=== PATIENT | female | born 1940 | race Caucasian/White ===

== ENCOUNTER → 2016-12-16 | Outpatient (CLI) | payer MEDICARE ==
[2016-12-16 17:59] LABS: Blood Urea Nitrogen 12 mg/dL (7-17); Non-African American GFR(MDRD) >60 (>60 ml/min/1.73 sqM)
--- NOTE | 2016-12-16 19:39 | CT ---
EXAMINATION TYPE: CT abdomen pelvis w con DATE OF EXAM: 12/16/2016 COMPARISON: NONE HISTORY: Bilateral lower quadrant and umbilical pain on and off for 1-[address] DLP: 973 mGycm Automated exposure control for dose reduction was used. TECHNIQUE: Helical acquisition of images was performed from the lung bases through the pelvis. CONTRAST: Performed with Oral Contrast and with IV Contrast, patient injected with 100 mL of Omnipaque 300. FINDINGS: Lung bases are clear. There is no pericardial effusion. There is no pleural effusion. Liver spleen pancreas gallbladder appear normal. Bile ducts are not dilated. There is no adrenal mass . Kidneys show satisfactory contrast opacification. There is no hydronephrosis. Abdominal aorta is at heromatous. There is no retroperitoneal adenopathy. There is no ascites. Bladder distends smoothly. T here is no sign of a pelvic mass. There is descent of the floor of the urinary bladder. There are a f ew sigmoid diverticula. There is no sign of diverticulitis. There are clips apparently from appendect ramy. I see no intestinal wall thickening. There is no sign of a bowel obstruction. IMPRESSION: THERE IS MILD SIGMOID DIVERTICULOSIS WITHOUT DIVERTICULITIS. THERE IS SOME DESCENT OF THE FLOOR OF THE URINARY BLADDER RELATED TO CYSTOCELE. DESCENT IS MORE THAN 3 CM.
== END | disposition home or self-care (01) ==
LOC: RADCTMAIN 16:22
PROVIDERS: ATTEND Family Medicine
DX: K57.30 Diverticulosis of large intestine without perforation or abscess without bleeding (principal); N81.10 Cystocele, unspecified; K59.00 Constipation, unspecified
CPT/HCPCS: 82565; 84520; 74177; 36415; Q9967

== ENCOUNTER 2017-02-27 11:16 | Observation (INO) | payer MEDICARE ==
[2017-02-27] MEDS ORDERED: HEPARIN SODIUM,PORCINE 5,000 UNIT/ML 1 ML VIAL IV ONE (13:32)
[2017-02-27] MEDS ORDERED: HEPARIN SODIUM,PORCINE 5,000 UNIT/ML 1 ML VIAL IV PRN (13:32)
[2017-02-27] MEDS ORDERED: HEPARIN SODIUM,PORCINE/D5W PMX 25,000 UNIT in DEXTROSE/WATER 1 500ML.BAG IV SCH (13:45)
[2017-02-27 14:26] LABS: Basophils # (A) 0.1 k/uL (0-0.2); Basophils % (A) 1 %; CH 32.5; CHCM 34.1; Eosinophils # (A) 0.1 k/uL (0-0.7); Eosinophils % (A) 1 %; HCT 39.6 % (34.0-46.0); HDW 2.21; Luc # (Auto) 0.13; Luc % (Auto) 2; Lymphocytes # (A) 1.7 k/uL (1.0-4.8); Lymphocytes % (A) 21 %; MCH 31.3 pg (25.0-35.0); MCHC 32.8 g/dL (31.0-37.0); MCV 95.6 fL (80.0-100.0); Mean Platelet Volume 7.7; Monocytes # (A) 0.5 k/uL (0-1.0); Monocytes % (A) 6 %; Neutrophils # (A) 5.7 k/uL (1.3-7.7); Neutrophils % (A) 70 %; RBC 4.14 m/uL (3.80-5.40); RDW 13.4 % (11.5-15.5); WBC 8.1 k/uL (3.8-10.6); WBC (Perox) 8.48
[2017-02-27 14:32] LABS: INR 1.1 (<1.2); Partial Thromboplastin Time 23.5 sec (22.0-30.0); Prothrombin Time 10.9 sec (9.0-12.0)
[2017-02-27 14:42] LABS: ALT 28 U/L (9-52); AST 39 U/L (14-36); Alkaline Phosphatase 62 U/L (38-126); Anion Gap 11 mmol/L; Blood Urea Nitrogen 10 mg/dL (7-17); Calcium 9.7 mg/dL (8.4-10.2); Carbon Dioxide 24 mmol/L (22-30); Chloride 104 mmol/L (98-107); Glucose 117 mg/dL (74-99); Non-African American GFR(MDRD) >60 (>60 ml/min/1.73 sqM); Potassium 4.4 mmol/L (3.5-5.1); Sodium 139 mmol/L (137-145); Total Bilirubin 0.6 mg/dL (0.2-1.3); Total Protein 6.8 g/dL (6.3-8.2)
[2017-02-27] MEDS: HYDROCORTISONE SUPPOSITORY 25 MG SUPP RECTAL SCH (16:33)
[2017-02-27] MEDS: CEPHALEXIN 500 MG CAP PO SCH ×2 (16:34→21:26)
[2017-02-27] MEDS ORDERED: PSYLLIUM HUSK 100% 6 GM PACKET PO SCH (21:00)
[2017-02-27] MEDS ORDERED: ATORVASTATIN 40 MG TAB PO SCH (21:00)
[2017-02-27] MEDS ORDERED: EZETIMIBE 10 MG TAB PO SCH (21:00)
[2017-02-27] MEDS ORDERED: LATANOPROST 0.005% OPHTH DROPS 2.5 ML BTL BOTH EYES SCH (21:00)
[2017-02-27] MEDS ORDERED: ASPIRIN 325 MG TAB PO SCH (21:00)
[2017-02-28] MEDS ORDERED: PANTOPRAZOLE 40 MG TABLET PO SCH (07:30)
[2017-02-28] MEDS ORDERED: LOSARTAN 50 MG TAB PO SCH (09:00)
[2017-02-28] MEDS ORDERED: B COMPLEX-VIT C-VIT E-ZINC 1 EACH TAB PO SCH (09:00)
[2017-02-28] MEDS ORDERED: ISOSORBIDE MONONITRATE ER 30 MG TAB.ER.24H PO SCH (09:00)
[2017-02-28] MEDS: CEPHALEXIN 500 MG CAP PO SCH (09:27)
--- NOTE | 2017-02-28 09:56 | HP ---
CHIEF COMPLAINT: Neck tightness and right anterior chest pain. This is a 76-year-old white female admitted with neck pain and right chest pain that had been going on for about a 48-hour period of time. She took some aspirin for symptom relief. Unfortunately it felt somewhat similar to what she has had previously before she had her bypass surgery multiple years ago. She has past medical history of ischemic heart disease and she had CABG done multiple vessels 2000 and stress test just done here on 05/06/16 with MPI was within normal limits. She has longstanding history of hyperlipidemia, coronary artery disease, and hypertension. Her ALLERGIES are to PENICILLIN. Medications are that of Losartan 50, Protonix 40, p.r.n. sublingual nitroglycerin, multivitamin, 30 of Imdur daily, vitamin B complex, simvastatin 80 and Zetia 10, Metamucil powder, aspirin 325. Surgical history is basically the coronary artery bypass. Family history showed a brother with coronary artery disease and father with coronary artery disease. REVIEW OF SYSTEMS: CARDIOPULMONARY: No shortness of breath. Nonspecific, dull to sharp, right chest pain and neck pain with tightness. No cough, no paroxysmal nocturnal dyspnea. No orthopnea. No true diaphoresis. GI: No hematemesis, melena, or hematochezia. : Within normal limits here with her. NEUROMUSCULAR: Normal. SKIN: She has no swelling in her legs now that she has had support hose, but she has some minimal lower feet swelling. PSYCHIATRIC: Normal. She is not depressed. PHYSICAL EXAMINATION: Blood pressure is 118/70, heart rate 70s and respiratory rate 16, temperature 98. EYES: Pupils are equal, round and reactive to light and accommodation. ENT: Showed tympanic membranes and pharynx to be negative NECK: Supple with midline trachea. CHEST: Essentially clear to auscultation with incisional scars of bypass. HEART: Sinus rhythm with no murmur. ABDOMEN: Soft, nontender with no organomegaly. She has good palpable pulses bilaterally in upper and lower extremities. NEUROMUSCULAR: She has arthritis in hands with decreased range of motion of her shoulders with minimal to no swelling in her lower extremities. She has good palpable lower extremity pulses. ASSESSMENT: 1. Acute coronary artery syndrome with history of CABG x3 vessels. 2. History of hyperlipidemia. 3. Gastroesophageal reflux. 4. Hypertension. 5. Borderline glaucoma. PLAN: Placed her in the hospital, started her on heparin. I am going to get some troponins. Will follow accordingly. Cardiology consultation with the possibility of stress test via cardiac cath in the morning. PANCHITO
--- NOTE | 2017-02-28 10:16 | ECHOF ---
Referral Reason:chest pain MEASUREMENTS -------- HEIGHT: 147.3 cm WEIGHT: 56.2 kg BP: 134/79 RVIDd: 2.9 cm (< 3.3) IVSd: 1.1 cm (0.6 - 1.1) LVIDd: 4.3 cm (3.9 - 5.3) LVPWd: 1.0 cm (0.6 - 1.1) IVSs: 1.3 cm LVIDs: 3.2 cm LVPWs: 1.5 cm LA Diam: 3.5 cm (2.7 - 3.8) LAESV Index (A-L): 23.50 ml/m Ao Diam: 3.0 cm (2.0 - 3.7) AV Cusp: 2.0 cm (1.5 - 2.6) MV EXCURSION: 10.933 mm (> 18.000) MV EF SLOPE: 14 mm/s (70 - 150) EPSS: 1.1 cm MV E Jose: 0.81 m/s MV DecT: 233 ms MV A Jose: 1.10 m/s MV E/A Ratio: 0.74 RAP: 5.00 mmHg RVSP: 24.79 mmHg FINDINGS -------- Sinus rhythm. This was a technically difficult study with suboptimal apical views. The left ventricular size is normal. Left ventricular wall thickness is normal. Overall left ventricular systolic function is normal with, an EF between 55 - 60 %. Septal wall motion is delayed and consistent with prior cardiac surgery. The right ventricle is normal in size. The left atrial size is normal. The right atrium is normal in size. 1.5mg of Definity was utilized for enhancement of images There is mild aortic valve sclerosis. The mitral valve leaflets are mildly thickened. Mild mitral annular calcification present. Mild tricuspid regurgitation present. Right ventricular systolic pressure is normal at < 35 mmHg. Trace/mild (physiologic) pulmonic regurgitation. The aortic root size is normal. Normal inferior vena cava with normal inspiratory collapse consistent with estimated right atrial pressure of 5 mmHg. There is no pericardial effusion. CONCLUSIONS -------- 1. Sinus rhythm. 2. There is mild aortic valve sclerosis. 3. The mitral valve leaflets are mildly thickened. 4. Mild mitral annular calcification present. 5. Mild tricuspid regurgitation present. 6. Right ventricular systolic pressure is normal at < 35 mmHg. 7. Trace/mild (physiologic) pulmonic regurgitation. 8. The aortic root size is normal. 9. Normal inferior vena cava with normal inspiratory collapse consistent with estimated right atrial pressure of 5 mmHg. 10. There is no pericardial effusion. 11. This was a technically difficult study with suboptimal apical views. 12. The left ventricular size is normal. 13. Left ventricular wall thickness is normal. 14. Septal wall motion is delayed and consistent with prior cardiac surgery. 15. The right ventricle is normal in size. 16. The left atrial size is normal. 17. The right atrium is normal in size. 18. 1.5mg of Definity was utilized for enhancement of images FEATHEREDGE MACHINE OPERATOR: Lanny Nunez RDCS
[2017-02-28] MEDS ORDERED: MULTIVITAMINS, THERA 1 EACH TAB PO SCH (12:00)
[2017-02-28 12:10] VITALS: BP 115/62; PULSE 83; RESP 18; TEMP 97.5
[2017-02-28] MEDS: HYDROCORTISONE SUPPOSITORY 25 MG SUPP RECTAL SCH (12:22)
--- NOTE | 2017-02-28 12:57 | ECHOS ---
DATE OF SERVICE: 02/28/2017 TYPE OF REPORT: Stress Echocardiogram INDICATION: Chest pain. BASELINE HEART RATE: 82 BASELINE BLOOD PRESSURE: 156/96 MAXIMUM HEART RATE: 140 MAXIMUM BLOOD PRESSURE: 149/88 85% MPHR: 124 100% MPHR: 146 METS: 9.6 MAX STAGE REACHED: II TOTAL EXERCISE TIME: 5 minutes Baseline EKG revealed a normal sinus rhythm with minor nonspecific ST-T changes. Patient walked on standard [facility] protocol for 5 minutes. Achieved a maximum heart rate of 140 beats per minute, which is more than 85% of predicted maximal. There was lots of baseline artifact. There was no evidence of any significant ST segment changes to indicate ischemia. Patient did not have any angina. By EKG criteria, this is a negative stress test with limited exercise capacity without angina, arrhythmia or EKG changes to indicate ischemia. Baseline echo images revealed a normal wall motion and wall thickening with atypical septal motion. At peak exercise, there was good augmentation of left ventricular wall motion and wall thickening of all segments, however, the quality of images was slightly suboptimal, but there is no evidence to suggest any ischemia on this stress echocardiogram. Atypical septal motion persisted. FINAL IMPRESSION: 1. By EKG criteria, this is a negative stress test with limited exercise capacity. 2. Although echo images were somewhat limited, there is no clear cut evidence to suggest ischemia on this stress echocardiogram. PANCHITO
--- NOTE | 2017-02-28 13:50 | P.CRDCN ---
History of Present Illness Consult date: 02/28/17 History of present illness: This is a 76-year-old female. Past medical history significant for CAD with CABG TRAN-LAD, graft to RCA and graft to ramus. She also has hypertension and hyperlipidemia. Patient presents with complaints of right chest wall pain she states she first felt this pain described as a poke on Friday afternoon after taking a long walk. She took an aspirin and the sensation seemed to subside. Then again on Friday she had a similar pain and this time she also felt a tightness and pressure in her neck and jaw. She states this presentation is consistent with how she felt when she had an MN in the past. She is a patient of Dr. Deleon. Her last stress test was Apr 2016 and was normal. Patient is a direct admit from Dr. Maldonado's office. EKG done shows normal sinus mechanism with conduction delay and left ventricular hypertrophy, old septal infarct apparent with no new T-wave abnormality. When compared with old EKG this appears consistent. Troponins are negative x3, potassium is 4.4, Hgb 13.0. Review of Systems REVIEW OF SYSTEMS: Patient denies any chest discomfort. No shortness of breath. No diaphoresis. Denies headache, dizziness, blurred vision, double vision. No dyspnea on exertion. Patient denies any stomach discomfort. No nausea, vomiting. No hematochezia. No hematemesis. Denies any black stools or blood in his stools. No syncope. No palpitations. No cough. No recent fever or chills. No muscle weakness or numbness. 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 Past Anesthesia/Blood Transfusion Reactions: Motion Sickness, Postoperative Nausea & Vomiting (PONV) Smoking Status: Never smoker - Past Family History Father Family Medical History: Myocardial Infarction (MN) Additional Family Medical History / Comment(s): Father of a MN at the age of 48yrs. Mother Additional Family Medical History / Comment(s): Mother had diverticular disease. She at the age of 94yrs. Brother(s) Family Medical History: Cancer, Myocardial Infarction (MN) Additional Family Medical History / Comment(s): Brother had a MN at the age of 69yrs. He had pancreatic cancer. Medications and Allergies Home Medications Medication Instructions Recorded Confirmed Type Aspirin EC [Ecotrin] 325 mg PO HS 02/27/17 02/27/17 History Bimatoprost [Lumigan .01% Ophth 1 drop BOTH EYES HS 02/27/17 02/27/17 History Soln] Ezetimibe [Zetia] 10 mg PO HS 02/27/17 02/27/17 History Isosorbide Mononitrate ER [Imdur] 30 mg PO DAILY 02/27/17 02/27/17 History Losartan [Cozaar] 50 mg PO DAILY 02/27/17 02/27/17 History Multivitamins, Thera [Multivitamin 1 tab PO DAILY 02/27/17 02/27/17 History (formulary)] Pantoprazole Sodium [Protonix] 40 mg PO DAILY 02/27/17 02/27/17 History Psyllium Husk 100% [Metamucil 6 gm PO HS 02/27/17 02/27/17 History Packet] Simvastatin 80 mg PO HS 02/27/17 02/27/17 History Vitamin B Complex 1 cap PO DAILY 02/27/17 02/27/17 History sulfaSALAzine [Azulfidine] 500 mg PO DAILY 02/27/17 02/27/17 History Allergies Allergy/AdvReac Type Severity Reaction Status Date / Time Penicillins Allergy Severe Anaphylaxis Verified 02/27/17 11:49 fexofenadine AdvReac extreme Verified 02/27/17 11:49 [From Liliana-D 12 Hour] depression prochlorperazine AdvReac Hallucinati Verified 02/27/17 11:49 [From Compazine] ons pseudoephedrine AdvReac extreme Verified 02/27/17 11:49 [From Lilinaa-D 12 Hour] depression Physical Exam Vitals: Vital Signs Temp Pulse Resp BP Pulse Ox 02/27/17 12:00 72 16 02/27/17 11:30 97.5 F L 72 16 134/79 98 Intake and Output 02/26/17 02/27/17 02/27/17 22:59 06:59 14:59 Intake Total 240 Balance 240 Intake: Oral 240 Other: Voiding Method Toilet Weight 56.4 kg Patient Weight 02/28/17 06:59 Weight 56.4 kg GENERAL: This is a 76-year-old female in no apparent distress at the time of my examination. HEENT: Head is atraumatic, normocephalic. Pupils are equal, round. Sclerae anicteric. Conjunctivae are clear. Mucous membranes of the mouth are moist. Neck is supple. There is no jugular venous distention. No carotid bruit is heard. LUNGS: Clear to auscultation no wheezes, rales or rhonchi. No chest wall tenderness is noted on palpation or with deep breathing. HEART: Regular rate and rhythm without murmurs, rubs or gallops. S1 and S2 heard. ABDOMEN: Soft, nontender. Bowel sounds are heard. No organomegaly noted. EXTREMITIES: 2+ peripheral pulses with no evidence of peripheral edema and no calf tenderness noted. NEUROLOGIC: Patient is awake, alert and oriented x3. Results 02/27/17 14:08 02/27/17 14:08 Current Medications Generic Name Dose Route Start Last Admin Trade Name Freq PRN Reason Stop Dose Admin Aspirin 325 mg 02/27/17 21:00 Aspirin PO HS [facility] Atorvastatin Calcium 40 mg 02/27/17 21:00 Lipitor PO HS [facility] Cephalexin 500 mg 02/27/17 16:00 Keflex PO TID MAZIN Ezetimibe 10 mg 02/27/17 21:00 Zetia PO HS [facility] Heparin Sodium (Porcine) 0 unit 02/27/17 13:32 Heparin IV PER PROTOCOL PRN Low PTT Protocol Hydrocortisone Acetate 25 mg 02/27/17 14:00 Anusol-Hc RECTAL DAILY MAZIN Heparin Sodium/Dextrose 25,000 500 mls @ 13.53 mls/hr 02/27/17 13:45 unit/ IV Solution IV .Q24H MAZIN Protocol 12 UNITS/KG/HR Isosorbide Mononitrate 30 mg 02/28/17 09:00 Imdur PO DAILY [facility] Latanoprost 1 drops 02/27/17 21:00 Xalatan 0.005% BOTH EYES HS MAZIN Losartan Potassium 50 mg 02/28/17 09:00 Cozaar PO DAILY [facility] Multivitamins 1 each 02/28/17 12:00 Theragran PO DAILY@1200 [facility] Pantoprazole Sodium 40 mg 02/28/17 07:30 Protonix PO AC-BRKFST MAZIN Psyllium Hydrophilic Mucilloid 6 gm 02/27/17 21:00 Metamucil PO HS [facility] Vitamin B Complex/Vit C/Vit E/Zinc 1 each 02/28/17 09:00 Z-Bec PO DAILY [facility] Intake and Output 02/26/17 02/27/17 02/27/17 22:59 06:59 14:59 Intake Total 240 Balance 240 Intake: Oral 240 Other: Voiding Method Toilet Weight 56.4 kg Patient Weight 02/28/17 06:59 Weight 56.4 kg Assessment and Plan Plan: ASSESSMENT 1. Chest pain, atypical 2. Coronary artery disease with CABG 3 vessels 3. History of hyperlipidemia 4. History of hypertension PLAN We will proceed with an echocardiogram and a exercise stress echo. If these tests come back negative the patient is stable for discharge home. She should follow-up with Dr. Deleon in one to 2 weeks. She has been advised to continue all current medications as previously ordered. Nurse Practitioner note has been reviewed, I agree with a documented findings and plan of care. Patient was seen and examined.
--- NOTE | 2017-02-28 15:26 | PN ---
Patient admitted with bilateral neck pain going into the lower jaw, quite severe even through transient over a two day period of time. Her EKG in my office shows no change. She has negative stress test. She has had previous CABG on 2000, which she presented, while I was in the hospital making rounds, to the emergency room with bilateral neck pain. At that time she had negative troponin initially but we placed her in the hospital accordingly. Then we watched some ST occur. She was taken up to the [facility] and positive multiple vessel blockage and had bypass surgery that day. This presentation of symptomatology is very similar. Not really shortness of breath. She also had a little bit of left chest pain and is kind of a stabbing pain, which seems to be incidental from the right rib four area through to the back, but is upper. Over the night she has been very comfortable. She has been heparinized. She also had a thorn situation or abrasion on her left arm which was minimally inflamed so we started her on Keflex for that too. At this point her review of systems: CARDIOPULMONARY: No shortness of breath. Her chest pain is minimal and on the right side more of a stabbing type sensation, but more significant is her left leg pressure type of spasm bilaterally. No hemoptysis. No cough. No fever, no chills. No paroxysmal nocturnal dyspnea. One pillow orthopnea. GI: No hematemesis, melena, hematochezia. : Negative. INTEGUMENTARY: Negative. ENDOCRINE: Negative. Vital signs today: She is alert, well oriented to person, place and thing. Her blood pressure is 114/64, heart rate is in the 60s, temperature is 98 and respiratory rate is 18. EYES: Pupils equal, round and reactive to light and accommodations. ENT: Shows tympanic membranes and pharynx to be negative NECK: Supple with midline trachea. CHEST: Essentially clear to auscultation. HEART: Sinus rhythm. ABDOMEN: Soft, nontender with no organomegaly. EXTREMITIES: Negative. LABS: Her troponins are negative. Her hemoglobin was 13, creatinine normal at 0.73 with BUN of 10 and sodium of 4.2. Three troponins over 6 hours are negative. ASSESSMENT: 1. Chest pain, nonspecific but no angina in nature. 2. History of hypertension. 3. Hyperlipidemia. 4. Small abrasion on the left arm. PLAN: At this period of time, I just talked with ( ) our nurse practitioner , still awaiting for cardiac evaluation for her to be stressed or cathed today at their discretion. PANCHITO
--- NOTE | 2017-03-17 14:37 | DS ---
DISCHARGE SUMMARY DATE OF ADMISSION: 02/27/2017 DATE OF DISCHARGE: 02/28/2017 DISCHARGE DIAGNOSES: 1. 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 2. History of acute coronary artery disease with CABG x3. 3. History of hyperlipidemia. 4. GE reflux. 5. Hypertension. 6. Borderline glaucoma. This was a 76-year-old, white female admitted with neck pain and chest pain that had been going on for about 48 hours. She took aspirin for symptomatic relief, unfortunately it did not seem to occur and she had similar symptoms with actually neck to chin pain as I remember [place] of 2000. At that time she was found to be in extreme multiple vessel stenosis of the coronary arteries which resulted in bypass surgery. The patient continued to feel this way. So she was admitted. Echocardiogram was completed after evaluation with Dr. Crystal Edward and her echo showed an ejection fraction between 55 and 60%. She had some septal wall delay which was consistent with previous cardiac surgery. Her left ventricular systolic pressure was less than 35. She had mild pulmonic regurgitation. So they proceeded to do a stress test on her and she ended up with a normal stress test with minor ST depression. She walked on a standard [facility] protocol for 5 minutes and achieved a heart rate of 140. The stress echo part of it showed nothing but the atypical septal motion. With that said, she was discharged home. She was stay on Azulfidine 500 mg which she was taking for her enteritis, vitamin D daily. She is on Metamucil. She takes 6 g at bedtime. Multiple vitamin, Zetia 10, aspirin 325, 50 of Zocor, 30 of Imdur, 80 of simvastatin, Protonix 40 daily and her Lumigan ophthalmic drops 1 drop both eyes daily. She will follow up with Dr. Deleon on outpatient basis and see me in a week. She is on a low fat, low salt diet and is comfortable on discharge. MMODL / IJN: [id number] /
== END 2017-02-28 13:39 | disposition home or self-care (01) ==
LOC: 3OBS 11:16
PROVIDERS: ADMIT Family Medicine; ATTEND Family Medicine
DX: R07.89 Other chest pain (principal); I25.10 Atherosclerotic heart disease of native coronary artery without angina pectoris; E78.5 Hyperlipidemia, unspecified; I10 Essential (primary) hypertension; K21.9 Gastro-esophageal reflux disease without esophagitis; M19.90 Unspecified osteoarthritis, unspecified site; M54.2 Cervicalgia; H40.9 Unspecified glaucoma; I25.2 Old myocardial infarction; K57.90 Diverticulosis of intestine, part unspecified, without perforation or abscess without bleeding; Z82.49 Family history of ischemic heart disease and other diseases of the circulatory system; Z95.1 Presence of aortocoronary bypass graft; Z79.899 Other long term (current) drug therapy; Z79.82 Long term (current) use of aspirin; Z88.0 Allergy status to penicillin; Z88.8 Allergy status to other drugs, medicaments and biological substances; M13.849 Other specified arthritis, unspecified hand; R68.84 Jaw pain; S40.812A Abrasion of left upper arm, initial encounter; W26.8XXA Contact with other sharp object(s), not elsewhere classified, initial encounter; I37.1 Nonrheumatic pulmonary valve insufficiency
CPT/HCPCS: 96365; 96366 ×2; 96376; 93017; 93350; 80053; 84484 ×2; 85025; 85610; 85730 ×2; G0378 ×2; G0379; C8929; J1644 ×2; Q9957; 93005; 93306

== ENCOUNTER → 2018-03-04 | Outpatient (CLI) | payer MEDICARE ==
[2018-03-04 11:18] LABS: Glucose 2 Hour 143 mg/dL
== END | disposition home or self-care (01) ==
LOC: LABWHC1 07:23
PROVIDERS: ATTEND Family Medicine
DX: E16.2 Hypoglycemia, unspecified (principal)
CPT/HCPCS: 36415; 82947; 82950

== ENCOUNTER → 2018-04-07 | Outpatient (CLI) | payer MEDICARE ==
--- NOTE | 2018-04-07 18:07 | US ---
EXAMINATION TYPE: US thyroid st tissue head/neck DATE OF EXAM: 04/07/2018 COMPARISON: NONE CLINICAL HISTORY: E07.9 Disorder of thyroid, unspecified MD felt swelling on right side of neck. GLAND SIZE: Right Lobe: 5.2 x 3.2 x 3.5 cm Overall Parenchyma: heterogenous Left Lobe: 3.7x 2.1 x 0.8 cm Overall Parenchyma: homogeneous Isthmus Thickness: 0.2 cm NODULES RIGHT: # of nodules measured on right: 0 No distinct separate nodule seen. Entire gland large and heterogeneous with cystic and solid areas. L argest cystic area = 1.0 x 0.9 x 0.5 cm in upper pole. LEFT: # of nodules measured on left: 0 Small in size. ISTHMUS: # of nodules measured in the isthmus: 0 Bilateral neck scanned, no evidence of lymphadenopathy. IMPRESSION: Findings suggest multinodular goiter
== END | disposition home or self-care (01) ==
LOC: RADUSWWP 13:46
PROVIDERS: ATTEND Family Medicine
DX: E07.9 Disorder of thyroid, unspecified (principal)
CPT/HCPCS: 76536